=== PATIENT | female | born 1995 | race Caucasian/White ===

== ENCOUNTER 2021-07-12 09:30 | Observation (INO) | payer OTHER ==
[~2021-07-12] VITALS: Ht 160 cm; Wt 81.2 kg
[2021-07-12 11:43] LABS: BASOPHILS % 0.2 % (0.0-2.0); EOSINOPHILS % 2.9 % (0.0-5.0); HEMATOCRIT. 37.1 % (36.0-48.0); HEMOGLOBIN. 12.6 g/dL (12.0-16.0); LYMPHOCYTES % 21.3 % (20.0-50.0); MEAN CORPUSCULAR HEMOGLOBIN 29.9 pg (28.0-32.0); MEAN CORPUSCULAR VOLUME 88.2 fL (81.0-99.0); MEAN PLATELET VOLUME 8.4 fl (7.4-10.4); MONOCYTES % 7.2 % (2.0-8.0); NEUTROPHILS % 68.4 % (40.0-76.0); PLATELET 231 x1000/uL (130-400); RED BLOOD CELL COUNT 4.21 mill/uL (4.2-5.4); RED CELL DISTRIBUTION WIDTH 13.8 % (11.6-14.6)
[2021-07-12 11:47] LABS: CHLORIDE 109 mEq/L (98-107)
[2021-07-12 11:53] LABS: CLARITY URINE TURBID (CLEAR); COLOR URINE YELLOW (YELLOW); KETONES URINE TRACE (NEGATIVE); LEUKOCYTE ESTERASE URINE TRACE (NEGATIVE); NITRITE URINE NEGATIVE (NEGATIVE); OCCULT BLOOD URINE NEGATIVE (NEGATIVE); PH URINE 7.5 (4.5-8.0); PROTEIN URINE TRACE (NEGATIVE); SPECIFIC GRAVITY URINE 1.029 (1.005-1.030); UROBILINOGEN URINE 0.2 E.U./dL (0.2-1.0)
[2021-07-12] MEDS ORDERED: DEXT 5%/LACTATED RINGERS 1,000 ML IV SCH (12:30)
== END 2021-07-12 12:35 | disposition left against medical advice (07) ==
LOC: 8 EST LDRP 09:30
PROVIDERS: ADMIT Obstetrics & Gynecology; ATTEND Obstetrics & Gynecology
DX: O21.2 Late vomiting of pregnancy (principal); Z3A.31 31 weeks gestation of pregnancy
CPT/HCPCS: 36415; 59025; 76805; 76818; 80053; 81003; 85025; G0378; 99281

== ENCOUNTER 2021-08-23 05:19 | Observation (INO) | payer OTHER ==
[~2021-08-23] VITALS: Ht 157.5 cm; Wt 83.5 kg
[2021-08-23] MEDS ORDERED: LACTATED RINGERS 1,000 ML IV SCH (06:30)
[2021-08-23] MEDS ORDERED: PNV1TABL76 MT (06:35)
[2021-08-23 08:22] LABS: BASOPHILS % 0.2 % (0.0-2.0); EOSINOPHILS % 2.3 % (0.0-5.0); HEMATOCRIT. 37.5 % (36.0-48.0); HEMOGLOBIN. 12.5 g/dL (12.0-16.0); LYMPHOCYTES % 18.6 % (20.0-50.0); MEAN CORPUSCULAR HEMOGLOBIN 29.3 pg (28.0-32.0); MEAN CORPUSCULAR VOLUME 87.6 fL (81.0-99.0); MEAN PLATELET VOLUME 8.7 fl (7.4-10.4); MONOCYTES % 6.7 % (2.0-8.0); NEUTROPHILS % 72.2 % (40.0-76.0); PLATELET 226 x1000/uL (130-400); RED BLOOD CELL COUNT 4.28 mill/uL (4.2-5.4)
[2021-08-23 08:39] LABS: CHLORIDE 112 mEq/L (98-107)
[2021-08-23] MEDS ORDERED: ACETAMINOPHEN 500MG TABLET PO NR (09:00)
== END 2021-08-23 09:10 | disposition home or self-care (01) ==
LOC: 8 EST LDRP 05:19 → 8 EST A/PP 05:36
PROVIDERS: ADMIT Obstetrics & Gynecology; ATTEND Obstetrics & Gynecology
DX: O99.891 Other specified diseases and conditions complicating pregnancy (principal); M54.9 Dorsalgia, unspecified; O62.9 Abnormality of forces of labor, unspecified; Z3A.37 37 weeks gestation of pregnancy
CPT/HCPCS: 36415; 59025; 76815; 76818; 80053; 85025; 96360; 96361; G0378; 99281

== ENCOUNTER 2021-08-28 23:30 | Observation (INO) | payer OTHER ==
[~2021-08-28] VITALS: Ht 158.8 cm; Wt 83.9 kg
[~2021-08-28 23:30] MED LIST: PNV1TABL76 MT
[2021-08-29] MEDS ORDERED: DEXT 5%/LACTATED RINGERS 1,000 ML IV SCH (00:45)
[2021-08-29 01:53] LABS: CHLORIDE 109 mEq/L (98-107)
[2021-08-29 02:04] LABS: CLARITY URINE TURBID (CLEAR); COLOR URINE YELLOW (YELLOW); KETONES URINE NEGATIVE (NEGATIVE); LEUKOCYTE ESTERASE URINE 1+ (NEGATIVE); NITRITE URINE NEGATIVE (NEGATIVE); OCCULT BLOOD URINE NEGATIVE (NEGATIVE); PROTEIN URINE NEGATIVE (NEGATIVE); SPECIFIC GRAVITY URINE 1.021 (1.005-1.030)
[2021-08-29] MEDS ORDERED: ACETAMINOPHEN 500MG TABLET PO NR (03:45)
== END 2021-08-29 04:10 | disposition home or self-care (01) ==
LOC: 8 EST LDRP 23:30
PROVIDERS: ADMIT Obstetrics & Gynecology; ATTEND Obstetrics & Gynecology
DX: O62.9 Abnormality of forces of labor, unspecified (principal); O99.891 Other specified diseases and conditions complicating pregnancy; M54.9 Dorsalgia, unspecified; Z3A.37 37 weeks gestation of pregnancy
CPT/HCPCS: 36415; 59025; 76705; 76805; 76818; 80053; 81003; G0378; 99281